=== PATIENT | male | born 1960 | race Caucasian/White ===

== ENCOUNTER 2021-11-07 15:22 | Emergency (ER) | payer OTHER ==
[2021-11-07] MEDS ORDERED: Sodium Chloride 0.9% 10 ML Syringe FLUSH ONE (16:41)
[2021-11-07] MEDS ORDERED: Iopamidol 755 Mg/ML 100 ML Bottle IVPUSH ONE (16:41)
[2021-11-07] MEDS ORDERED: Sodium Chloride 0.9% 100 ML IV SCH (16:45)
[2021-11-07] MEDS ORDERED: Aspirin 81 MG Tab.Chew PO ONE (17:22)
[2021-11-07] MEDS: Nitroglycerin 0.4 MG Tab.SL SL PRN ×2 (17:55→18:06)
[2021-11-07] MEDS ORDERED: Heparin Sodium 5,000 Units/ML Vial IVPUSH ONE (18:07)
[2021-11-07] MEDS ORDERED: Heparin Sodium/D5W 25,000 UNITS/500 ML BAG IV SCH (18:15)
[2021-11-07] MEDS ORDERED: Furosemide 40 MG/4 ML VIAL IVPUSH ONE (18:20)
[2021-11-07] MEDS ORDERED: Nitroglycerin/D5W 25 MG/250 ML BOTTLE IV SCH (18:30)
[2021-11-07 19:10] VITALS: BP 147/100; PULSE 98
== END 2021-11-07 19:08 ==
LOC: JD.ED 15:22 → SUPCPDRO 15:22 → JD.ED 19:08
DX: I21.4 Non-ST elevation (NSTEMI) myocardial infarction (principal); I11.0 Hypertensive heart disease with heart failure; I50.9 Heart failure, unspecified; Z86.16 Personal history of COVID-19; Z20.822 Contact with and (suspected) exposure to COVID-19
CPT/HCPCS: 36415; 71275; 80053; 82009; 83880; 84484; 85610; 87635; 93005; 96365; 96368; 96375; 99285; A9270; J1644; J1940; J3490; 93010; U0002

== ENCOUNTER 2023-11-19 02:19 | Emergency (ER) | payer OTHER ==
[2023-11-19] MEDS: Ketorolac 15 MG/ML SDV IM ONE (03:22)
[2023-11-19 05:41] VITALS: BP 120/65; PULSE 87
== END 2023-11-19 05:30 | disposition home or self-care (01) ==
LOC: JD.ED 02:19
DX: M54.42 Lumbago with sciatica, left side (principal); I10 Essential (primary) hypertension; Z79.82 Long term (current) use of aspirin; Z79.899 Other long term (current) drug therapy; Z79.84 Long term (current) use of oral hypoglycemic drugs
CPT/HCPCS: 96372; 99283; J1885

== ENCOUNTER 2024-07-18 07:11 | Day surgery (SDC) | payer OTHER ==
[~2024-07-18 07:11] MED LIST: Propofol 200 MG/20 ML SDV ONE; Sodium Chloride 0.9% 10 ML Syringe FLUSH PRN; Sodium Chloride 0.9% 10 ML Syringe FLUSH SCH
[2024-07-18] MEDS: Lactated Ringers 1,000 ML IV SCH (07:25)
[2024-07-18 10:50] VITALS: BP 140/77; PULSE 70
== END 2024-07-18 09:46 | disposition home or self-care (01) ==
LOC: JD.SDS 07:11
PROVIDERS: ATTEND Surgery
DX: Z12.11 Encounter for screening for malignant neoplasm of colon (principal); R19.5 Other fecal abnormalities; D12.3 Benign neoplasm of transverse colon; K57.30 Diverticulosis of large intestine without perforation or abscess without bleeding; K64.8 Other hemorrhoids; I11.0 Hypertensive heart disease with heart failure; I50.43 Acute on chronic combined systolic (congestive) and diastolic (congestive) heart failure; E11.9 Type 2 diabetes mellitus without complications; I25.10 Atherosclerotic heart disease of native coronary artery without angina pectoris; Z79.84 Long term (current) use of oral hypoglycemic drugs; Z79.899 Other long term (current) drug therapy
CPT/HCPCS: 45380; J2704; J7120; 00811